=== PATIENT | male | born 1955 | race Caucasian/White ===

== ENCOUNTER 2019-08-13 21:06 | Inpatient (IN) ==
[2019-08-13] MEDS ORDERED: NITROGLYCERIN 2% OINT 1 INCH/GM PACK TOP STA (21:27)
[2019-08-13] MEDS ORDERED: ONDANSETRON 4 MG/2 ML VIAL IV STA (21:27)
[2019-08-13] MEDS ORDERED: HYDROmorphone 2 MG/1 ML VIAL IV STA ×2 (21:27→23:10)
[2019-08-13] MEDS ORDERED: ALUM/MAG/SIMETH/LIDO VISC 1:1 30 ML BOTTLE PO STA (21:27)
[2019-08-13] MEDS ORDERED: ASPIRIN 325 MG TABLET PO STA (21:27)
[2019-08-13 22:23] LABS: Basophils # 0.1 10*3/uL (0.0-0.2); Eosinophils # 0.3 10*3/uL (0.0-0.87); Eosinophils % 3.3 % (0.00-10.9); Hematocrit 44.9 VOL% (42.0-52.0); Hemoglobin 15.6 GM/DL (14.0-18.0); Immature Granulocytes % 0.4 %; Immature Granulocytes Absolute 0.04 #; Lymphocytes # 3.1 10*3/uL (1.4-4.0); Lymphocytes % 34.7 % (21.2-54.2); Mean Corpuscular HGB Conc 34.7 GM/DL (32-36); Mean Corpuscular Volume 88.9 FL (87-102); Mean Platelet Volume 10.3 FL (9.6-12.0); Monocytes % 8.6 % (1.7-12.7); Platelet Count 247 T/CUMM (130-400); Red Blood Count 5.05 MC/CUMM (3.8-5.5); Red Cell Distribution Width 13.1 % (9.3-17.3); White Blood Count 9.1 T/CUMM (4-12)
[2019-08-13 22:31] LABS: INR 0.9; PT Patient Result 9.5 SECS (9.6-12.2)
[2019-08-13 22:43] LABS: Alanine Aminotransferase 25 U/L (16-61); Albumin 4.3 G/DL (3.4-5.0); Alkaline Phosphatase 103 U/L (45-117); Aspartate Amino Transferase 16 U/L (0-37); Blood Urea Nitrogen 20 MG/DL (7-18); Glucose 102 MG/DL (74-106); Osmolality,Calculated 283.3 MOS/KG (273-304); Total Protein 8.6 G/DL (6.4-8.3)
[2019-08-13 22:45] LABS: Troponin I 0.135 NG/ML (0.00-0.045)
[2019-08-13] MEDS ORDERED: ENOXAPARIN 100 MG/ML SYRINGE SUBCUT STA (22:59)
[2019-08-13] MEDS ORDERED: ONDANSETRON 4 MG/2 ML VIAL IV PRN (23:29)
[2019-08-13] MEDS ORDERED: NITROGLYCERIN SL 0.4 MG TABLET SL PRN (23:34)
[2019-08-13] MEDS ORDERED: METOPROLOL TARTRATE 25 MG TABLET PO SCH (23:45)
[2019-08-13] MEDS ORDERED: HEPARIN DRIP 25,000 UNITS/500 ML PREMIX IV SCH (23:45)
[2019-08-14] MEDS: MORPHINE 4 MG/1 ML VIAL IV PRN ×2 (04:40→21:40)
[2019-08-14] MEDS ORDERED: hydrALAZINE 20 MG/1 ML VIAL IV PRN (04:54)
[2019-08-14 04:55] LABS: Basophils # 0.1 10*3/uL (0.0-0.2); Basophils % 0.8 % (0.0-0.8); Eosinophils # 0.3 10*3/uL (0.0-0.87); Eosinophils % 2.9 % (0.00-10.9); Hematocrit 44.7 VOL% (42.0-52.0); Hemoglobin 14.9 GM/DL (14.0-18.0); Immature Granulocytes % 0.4 %; Immature Granulocytes Absolute 0.04 #; Lymphocytes # 3.8 10*3/uL (1.4-4.0); Lymphocytes % 35.1 % (21.2-54.2); Mean Corpuscular HGB Conc 33.3 GM/DL (32-36); Mean Corpuscular Volume 91.2 FL (87-102); Mean Platelet Volume 10.3 FL (9.6-12.0); Neutrophils % 52.8 % (38.7-73.9); Platelet Count 227 T/CUMM (130-400); Red Cell Distribution Width 13.2 % (9.3-17.3); White Blood Count 10.9 T/CUMM (4-12)
[2019-08-14 05:33] LABS: Bilirubin,Total 1.5 MG/DL (0.2-1.0); Calcium 9.1 MG/DL (8.5-10.1); Osmolality,Calculated 282.4 MOS/KG (273-304); Risk Ratio 6.74; Thyroid Stimulating Hormone 1.15 uIU/ml (0.358-3.74); Total Protein 7.8 G/DL (6.4-8.3); VLDL CHOLESTEROL 56.2 MG/DL
[2019-08-14] MEDS ORDERED: SODIUM CHLORIDE 0.9% 1,000 ML IV SCH ×2 (08:00→13:30)
[2019-08-14] MEDS: NITROGLYCERIN 2% OINT 1 INCH/GM PACK TOP SCH ×3 (08:15→18:26)
[2019-08-14] MEDS: ATORVASTATIN 80 MG TABLET PO SCH ×2 (08:15→21:31)
[2019-08-14] MEDS: NICOTINE 21 MG/24 HR PATCH TRANSDERM SCH (08:15)
[2019-08-14] MEDS: ASPIRIN EC 81 MG TABLET PO SCH (08:16)
[2019-08-14] MEDS: PANTOPRAZOLE 40 MG TABLET PO SCH (08:16)
[2019-08-14] MEDS ORDERED: ASPIRIN CHEW 81 MG TABLET PO ONE (08:41)
[2019-08-14] MEDS ORDERED: MAGNESIUM SULF RIDER 2 GM in PREMIX 1 EACH IV PRN (08:41)
[2019-08-14] MEDS ORDERED: diphenhydrAMINE CAP 25 MG CAPSULE PO ONE (08:41)
[2019-08-14] MEDS ORDERED: POTASSIUM CHLORIDE RIDER 10 MEQ in PREMIX 1 EACH IV PRN (08:41)
[2019-08-14] MEDS ORDERED: DIAZEPAM 5 MG TABLET PO ONE (08:41)
[2019-08-14 08:43] LABS: CKMB % 14.6 %
[2019-08-14 08:50] LABS: Troponin I 3.14 NG/ML (0.00-0.045)
[2019-08-14] MEDS ORDERED: METOPROLOL TARTRATE 25 MG TABLET PO SCH (09:00)
[2019-08-14] MEDS ORDERED: LORazepam 2 MG/1 ML VIAL ONE (09:09)
[2019-08-14] MEDS: BISOPROLOL 5 MG TABLET PO SCH ×2 (09:13→21:31)
[2019-08-14] MEDS: LORazepam 2 MG/1 ML VIAL IV PRN (09:14)
[2019-08-14] MEDS: PARoxetine 20 MG TABLET PO SCH (09:14)
[2019-08-14] MEDS: ALBUTEROL/IPRATROPIUM 3 ML NEB RESP TX SCH ×5 (09:38→23:19)
[2019-08-14] MEDS ORDERED: ENOXAPARIN 100 MG/ML SYRINGE SUBCUT SCH (11:00)
[2019-08-14] MEDS ORDERED: LIDOCAINE 1% 20 ML VIAL ONE (11:03)
[2019-08-14] MEDS ORDERED: fentaNYL 100 MCG/2 ML VIAL ONE (11:16)
[2019-08-14] MEDS ORDERED: MIDAZOLAM 2 MG/2 ML VIAL ONE (11:16)
[2019-08-14] MEDS: LEVOTHYROXINE 200 MCG TABLET PO SCH (13:06)
[2019-08-14] MEDS ORDERED: DEXTROSE 50% 25 GM/50 ML VIAL IV PRN (13:29)
[2019-08-14] MEDS ORDERED: GLUCAGON 1 MG VIAL IM PRN (13:29)
[2019-08-14] MEDS ORDERED: CEFUROXIME INJ 1,500 MG in SYRINGE 1 EACH IV ONE (13:29)
[2019-08-14] MEDS: CHLORHEXIDINE 4% SOLN 118 ML BOTTLE TOP SCH ×2 (15:30→21:32)
[2019-08-14] MEDS: CHLORHEXIDINE 0.12% ORAL RINSE 60 ML BOTTLE SWISH/SPIT SCH ×2 (17:00→21:32)
[2019-08-14 18:37] LABS: ABG Base Excess -0.8 MMOL/L (-2.5-2.5); ABG Oxygen Saturation 96.3 % (95-100); ABG PCO2 35.7 MM HG (35-48); ABG PH 7.427 (7.35-7.45); ABG PO2 85.5 MM HG (80-95); ABG TCO2 24.1 MMOL/L (23-27); Pt O2 Delivery Device Room Air
[2019-08-15] MEDS: NITROGLYCERIN 2% OINT 1 INCH/GM PACK TOP SCH ×2 (00:56→05:40)
[2019-08-15] MEDS: LORazepam 2 MG/1 ML VIAL IV PRN (01:08)
[2019-08-15] MEDS: ALBUTEROL/IPRATROPIUM 3 ML NEB RESP TX SCH ×6 (03:41→23:30)
[2019-08-15] MEDS ORDERED: PAPAVERINE 60 MG/2 ML VIAL ONE (04:23)
[2019-08-15] MEDS ORDERED: VANCOMYCIN 1,000 MG VIAL ONE (04:23)
[2019-08-15 05:06] LABS: Basophils # 0.1 10*3/uL (0.0-0.2); Basophils % 0.5 % (0.0-0.8); Eosinophils # 0.1 10*3/uL (0.0-0.87); Eosinophils % 1.2 % (0.00-10.9); Hematocrit 40.4 VOL% (42.0-52.0); Hemoglobin 13.3 GM/DL (14.0-18.0); Immature Granulocytes % 0.4 %; Immature Granulocytes Absolute 0.05 #; Lymphocytes # 2.1 10*3/uL (1.4-4.0); Lymphocytes % 18.8 % (21.2-54.2); Mean Corpuscular HGB Conc 32.9 GM/DL (32-36); Mean Corpuscular Volume 92.4 FL (87-102); Mean Platelet Volume 10.4 FL (9.6-12.0); Monocytes % 7.2 % (1.7-12.7); Neutrophils % 71.9 % (38.7-73.9); Platelet Count 203 T/CUMM (130-400); Red Blood Count 4.37 MC/CUMM (3.8-5.5); Red Cell Distribution Width 13.2 % (9.3-17.3); White Blood Count 11.3 T/CUMM (4-12)
[2019-08-15] MEDS: CHLORHEXIDINE 4% SOLN 118 ML BOTTLE TOP SCH ×2 (05:34→08:31)
[2019-08-15 05:38] LABS: Albumin 3.9 G/DL (3.4-5.0); Bilirubin,Total 1.8 MG/DL (0.2-1.0); Calcium 8.9 MG/DL (8.5-10.1); Osmolality,Calculated 279.5 MOS/KG (273-304); Total Protein 7.6 G/DL (6.4-8.3)
[2019-08-15 05:43] LABS: Troponin I 12.3 NG/ML (0.00-0.045)
[2019-08-15] MEDS ORDERED: MIDAZOLAM 10 MG/2 ML VIAL ONE (05:57)
[2019-08-15] MEDS ORDERED: SUFentanil 250 MCG/5 ML AMP ONE (05:57)
[2019-08-15] MEDS ORDERED: DIAZEPAM 5 MG TABLET PO ONE (06:00)
[2019-08-15] MEDS ORDERED: FAMOTIDINE 20 MG TABLET PO ONE (06:00)
[2019-08-15] MEDS ORDERED: ALBUTEROL/IPRATROPIUM 3 ML NEB RESP TX ONE (06:00)
[2019-08-15 06:05] LABS: Apearance,Urine CLEAR (Clear); Bilirubin,Urine Negative (Negative); Blood, Urine Negative (Negative); Glucose,Urine (UA) Negative (Negative); Ketones,Urine Negative (Negative); Nitrite,Urine Negative (Negative); Protein,Urine Negative; RBC,Urine 3 /HPF (0-4); Squamous Epithelial Cell,Urine Occasional /HPF (0-10); Urine Color Straw (Yellow); Urine Specific Gravity 1.011 (1.001-1.035); Urine Urobilinogen < 2.0 EU/DL (0.2-1.0); WBC,Urine <1 /HPF (0-6)
[2019-08-15 06:11] LABS: Barbiturates Screen,Urine Negative (Negative); Benzodiazepines Screen,Urine Positive (Negative); Cannabinoid Screen,Urine Negative (Negative); Opiate Screen,Urine Positive (Negative); Phencyclidine Screen,Urine Negative (Negative)
[2019-08-15] MEDS ORDERED: PHENYLEPHRINE DRIP 40 MG/250 ML PREMIX IV ONE (07:25)
[2019-08-15] MEDS ORDERED: SODIUM BICARBONATE 50 MEQ/50 ML VIAL IV ONE ×2 (07:25→10:39)
[2019-08-15] MEDS ORDERED: NITROPRUSSIDE 50 MG/2 ML VIAL ONE (07:25)
[2019-08-15] MEDS ORDERED: POTASSIUM CHLORIDE RIDER 100 ML IV ONE (07:26)
[2019-08-15] MEDS ORDERED: CALCIUM CHLORIDE 1,000 MG/10 ML SYRINGE IV ONE (07:26)
[2019-08-15] MEDS ORDERED: ALBUMIN 5% 12.5 GM/250 ML VIAL IV ONE ×2 (07:27→15:37)
[2019-08-15 07:48] LABS: ABG Base Excess -1.8 MMOL/L (-2.5-2.5); ABG Oxygen Saturation 99.9 % (95-100); ABG PCO2 35.9 MM HG (35-48); ABG PH 7.404 (7.35-7.45); ABG TCO2 19.7 MMOL/L (23-27); Glucose Heart Surgery 130 MG/DL (74-106); Hematocrit Heart Surgery 38.6 PERCENT (42-52); Hemoglobin Heart Surgery 12.5 G/DL (14.0-18.0); Ionized Calcium Arterial 1.14 MMOL/L (1.21-1.46); PCO2 Patient Temp Arterial 35.9 MMHG; PH Patient Temp Arterial 7.404; Patient Temperature 37 CELCIUS; Potassium Heart/CVR 4.1 MMOL/L (3.5-5.1); Sodium Heart/CVR 137 MMOL/L (135-145)
[2019-08-15] MEDS: NICOTINE 21 MG/24 HR PATCH TRANSDERM SCH (08:31)
[2019-08-15] MEDS: ASPIRIN EC 81 MG TABLET PO SCH (08:31)
[2019-08-15] MEDS: PANTOPRAZOLE 40 MG TABLET PO SCH (08:32)
[2019-08-15] MEDS: PARoxetine 20 MG TABLET PO SCH (08:32)
[2019-08-15] MEDS: LEVOTHYROXINE 200 MCG TABLET PO SCH (08:32)
[2019-08-15] MEDS: CHLORHEXIDINE 0.12% ORAL RINSE 60 ML BOTTLE SWISH/SPIT SCH ×2 (08:32→20:29)
[2019-08-15] MEDS: BISOPROLOL 5 MG TABLET PO SCH (08:32)
[2019-08-15 08:35] LABS: Apearance,Urine CLEAR (Clear); Bilirubin,Urine Negative (Negative); Blood, Urine Small mg/dL (Negative); Glucose,Urine (UA) Negative (Negative); Ketones,Urine Negative (Negative); Nitrite,Urine Negative (Negative); Protein,Urine Negative; RBC,Urine 5 /HPF (0-4); Squamous Epithelial Cell,Urine Occasional /HPF (0-10); Urine Color Yellow (Yellow); Urine Urobilinogen < 2.0 EU/DL (0.2-1.0); WBC,Urine <1 /HPF (0-6)
[2019-08-15] MEDS ORDERED: CALCIUM CHLORIDE 1,000 MG/10 ML VIAL IV ONE (09:00)
[2019-08-15] MEDS ORDERED: AMINOCAPROIC ACID 5,000 MG/20 ML VIAL ONE (09:00)
[2019-08-15] MEDS ORDERED: HEPARIN/NACL 0.9% 2 UNITS/ML 500 ML IV ONE (09:00)
[2019-08-15] MEDS ORDERED: NITROGLYCERIN DRIP 50 MG/250 ML BOTTLE IV ONE (09:00)
[2019-08-15] MEDS ORDERED: PHENYLEPHRINE DRIP 20 MG/250 ML PREMIX IV ONE (09:00)
[2019-08-15 09:08] LABS: Hemoglobin Heart Surgery 8.4 G/DL (14.0-18.0); PCO2 Patient Temp Venous 31.8 MM HG; PH Patient Temp Venous 7.452; PO2 Patient Temp Venous 35.9 MM HG; Potassium Heart/CVR 5.4 MMOL/L (3.5-5.1); VBG HCO3 22.1 MEQ/L (24-28); VBG Oxygen Saturation 77.7 %; VBG PCO2 34.7 MMHG (41-51); VBG PH 7.422; VBG PO2 41.4 MMHG (17-40)
[2019-08-15 09:41] LABS: Hematocrit Heart Surgery 26.6 PERCENT (42-52); Hemoglobin Heart Surgery 8.6 G/DL (14.0-18.0); PCO2 Patient Temp Venous 34.9 MM HG; PH Patient Temp Venous 7.443; PO2 Patient Temp Venous 38.2 MM HG; Potassium Heart/CVR 5.8 MMOL/L (3.5-5.1); VBG Base Excess 0.1 MEQ/L (0-4); VBG HCO3 24.3 MEQ/L (24-28); VBG Oxygen Saturation 81.9 %; VBG PCO2 38.4 MMHG (41-51); VBG PH 7.414; VBG PO2 43.9 MMHG (17-40)
[2019-08-15] MEDS ORDERED: THROMBIN TOPICAL (RECOMBINANT) 5,000 UNIT VIAL TOP ONE (10:04)
[2019-08-15 10:32] LABS: ABG HCO3 21.1 MMOL/L (20-26); ABG Oxygen Saturation 98.9 % (95-100); ABG PCO2 34.1 MM HG (35-48); ABG PH 7.409 (7.35-7.45); ABG TCO2 22.1 MMOL/L (23-27); Glucose Heart Surgery 216 MG/DL (74-106); Hemoglobin Heart Surgery 10.2 G/DL (14.0-18.0); Ionized Calcium Arterial 1.15 MMOL/L (1.21-1.46); PCO2 Patient Temp Arterial 34.1 MMHG; PH Patient Temp Arterial 7.409; Patient Temperature 37 CELCIUS; Potassium Heart/CVR 4.1 MMOL/L (3.5-5.1); Sodium Heart/CVR 131 MMOL/L (135-145)
[2019-08-15] MEDS ORDERED: ALBUMIN 25% 25 GM/100 ML VIAL IV ONE (10:39)
[2019-08-15] MEDS ORDERED: LIDOCAINE 100 MG/5 ML SYRINGE ONE (10:39)
[2019-08-15] MEDS ORDERED: PROTAMINE SULFATE 250 MG/25 ML VIAL IV ONE (10:39)
[2019-08-15] MEDS ORDERED: MANNITOL 100 GM/500 ML BAG IV ONE (10:39)
[2019-08-15] MEDS ORDERED: MAGNESIUM SULFATE 5 GM/10 ML VIAL IV ONE (10:40)
[2019-08-15] MEDS ORDERED: methylPREDNISolone SOD SUC 1,000 MG/8 ML VIAL ONE (10:40)
[2019-08-15] MEDS ORDERED: HEPARIN 10,000 UNIT/10 ML VIAL ONE (10:40)
[2019-08-15] MEDS ORDERED: FUROSEMIDE 20 MG/2 ML VIAL ONE (10:40)
[2019-08-15] MEDS ORDERED: PROTAMINE SULFATE 50 MG/5 ML VIAL IV ONE (10:40)
[2019-08-15] MEDS ORDERED: DEXTROSE 5% KCL 20 MEQ 20 MEQ/1,000 ML BAG IV ONE (10:41)
[2019-08-15] MEDS ORDERED: NITROPRUSSIDE 100 MG in DEXTROSE 5% 250 ML IV PRN (11:28)
[2019-08-15] MEDS ORDERED: INSULIN REGULAR DRIP 100 ML IV PRN (11:29)
[2019-08-15] MEDS ORDERED: SODIUM CHLORIDE 0.45% 1,000 ML IV SCH ×2 (11:30)
[2019-08-15] MEDS ORDERED: SEVOFLURANE 1 UNIT/15 MINUTE INH ONE (11:38)
[2019-08-15] MEDS ORDERED: SODIUM CHLORIDE 0.9% 1,000 ML IV ONE (11:38)
[2019-08-15] MEDS ORDERED: ETOMIDATE 40 MG/20 ML VIAL IV ONE (11:38)
[2019-08-15] MEDS ORDERED: SUCCINYLCHOLINE 200 MG/10 ML VIAL ONE (11:38)
[2019-08-15] MEDS ORDERED: LACTATED RINGERS 1,000 ML IV ONE (11:38)
[2019-08-15] MEDS ORDERED: VECURONIUM 10 MG VIAL IV ONE (11:38)
[2019-08-15] MEDS ORDERED: LIDOCAINE 1% 5 ML VIAL ONE (11:38)
[2019-08-15] MEDS ORDERED: SODIUM CHLORIDE 0.9% 250 ML IV ONE (11:38)
[2019-08-15] MEDS ORDERED: ePHEDrine 50 MG/ML AMP ONE (11:38)
[2019-08-15] MEDS ORDERED: SODIUM CHLORIDE 0.9% 100 ML IV ONE (11:38)
[2019-08-15] MEDS ORDERED: PHENYLEPHRINE 1 MG/10 ML SYRINGE IV ONE (11:39)
[2019-08-15] MEDS ORDERED: MAGNESIUM SULF RIDER 2 GM in PREMIX 1 EACH IV PRN (11:40)
[2019-08-15] MEDS ORDERED: VECURONIUM 10 MG VIAL IV PRN ×2 (11:40)
[2019-08-15] MEDS ORDERED: MAGNESIUM SULF RIDER 4 GM in PREMIX 1 EACH IV PRN (11:40)
[2019-08-15] MEDS ORDERED: DEXTROSE 50% 25 GM/50 ML VIAL IV PRN ×2 (11:40)
[2019-08-15] MEDS ORDERED: INSULIN REGULAR 100 UNIT/ML IV ONE (11:40)
[2019-08-15] MEDS ORDERED: MIDAZOLAM 2 MG/2 ML VIAL IV PRN (11:40)
[2019-08-15] MEDS ORDERED: CALCIUM CHLORIDE 1,000 MG/10 ML SYRINGE IV PRN (11:40)
[2019-08-15] MEDS ORDERED: MORPHINE 10 MG/1 ML VIAL IV PRN (11:40)
[2019-08-15] MEDS ORDERED: ACETAMINOPHEN 650 MG SUPP RECTAL PRN (11:40)
[2019-08-15] MEDS ORDERED: MIDAZOLAM 10 MG/2 ML VIAL IV PRN (11:40)
[2019-08-15] MEDS ORDERED: ONDANSETRON 4 MG/2 ML VIAL IV PRN (11:40)
[2019-08-15] MEDS ORDERED: CHLORHEXIDINE 4% SOLN 118 ML BOTTLE TOP PRN (11:40)
[2019-08-15] MEDS ORDERED: POTASSIUM CHLORIDE RIDER 10 MEQ in PREMIX 1 EACH IV PRN (11:40)
[2019-08-15 11:47] LABS: ABG Base Excess -4.5 MMOL/L (-2.5-2.5); ABG HCO3 21.4 MMOL/L (20-26); ABG PCO2 42.5 MM HG (35-48); ABG PO2 268.9 MM HG (80-95); ABG TCO2 22.7 MMOL/L (23-27); Glucose Heart Surgery 197 MG/DL (74-106); Hemoglobin Heart Surgery 11.5 G/DL (14.0-18.0); Potassium Heart/CVR 3.2 MMOL/L (3.5-5.1)
[2019-08-15 11:59] LABS: Partial Thromboplastin Time 26.4 SECS (20.8-36.0)
[2019-08-15] MEDS: ALBUMIN 5% 25 GM in PREMIX 1 EACH IV PRN ×4 (12:00→16:56)
[2019-08-15] MEDS: LACTATED RINGERS 1,000 ML IV PRN ×2 (12:00→13:11)
[2019-08-15] MEDS ORDERED: INSULIN REGULAR DRIP 100 ML IV SCH (12:00)
[2019-08-15 12:01] LABS: Basophils % 0.3 % (0.0-0.8); Eosinophils # 0.1 10*3/uL (0.0-0.87); Eosinophils % 0.4 % (0.00-10.9); Hematocrit 32.5 VOL% (42.0-52.0); Hemoglobin 10.9 GM/DL (14.0-18.0); Immature Granulocytes % 0.8 %; Immature Granulocytes Absolute 0.12 #; Lymphocytes # 2.3 10*3/uL (1.4-4.0); Lymphocytes % 14.9 % (21.2-54.2); Mean Corpuscular HGB Conc 33.5 GM/DL (32-36); Mean Corpuscular Volume 92.1 FL (87-102); Mean Platelet Volume 10.5 FL (9.6-12.0); Monocytes % 5.5 % (1.7-12.7); Neutrophils % 78.1 % (38.7-73.9); Platelet Count 168 T/CUMM (130-400); Red Blood Count 3.53 MC/CUMM (3.8-5.5); Red Cell Distribution Width 13.4 % (9.3-17.3); White Blood Count 15.6 T/CUMM (4-12)
[2019-08-15] MEDS: KETOROLAC 30 MG/1 ML VIAL IV SCH ×3 (12:13→23:37)
[2019-08-15] MEDS: POTASSIUM CHLORIDE RIDER 20 MEQ in PREMIX 1 EACH IV PRN ×3 (12:15→14:00)
[2019-08-15 12:22] LABS: CKMB % 6.7 %
[2019-08-15 12:24] LABS: Troponin I 15.5 NG/ML (0.00-0.045)
[2019-08-15 12:30] LABS: Albumin 3.4 G/DL (3.4-5.0); Bilirubin,Total 1.4 MG/DL (0.2-1.0); Calcium 8.3 MG/DL (8.5-10.1); Osmolality,Calculated 283.5 MOS/KG (273-304); Total Protein 6.3 G/DL (6.4-8.3)
[2019-08-15] MEDS: PHENYLEPHRINE DRIP 40 MG/250 ML PREMIX IV PRN (12:30)
[2019-08-15] MEDS ORDERED: AMIODARONE 150 MG/3 ML VIAL ONE ×2 (12:39→12:42)
[2019-08-15] MEDS ORDERED: AMIODARONE 450 MG/9 ML VIAL IV ONE (12:41)
[2019-08-15] MEDS ORDERED: AMIODARONE INJ 150 MG in DEXTROSE 5% 100 ML IV ONE (12:58)
[2019-08-15 12:59] LABS: ABG Base Excess -6.9 MMOL/L (-2.5-2.5); ABG HCO3 18.8 MMOL/L (20-26); ABG Oxygen Saturation 95.5 % (95-100); ABG PCO2 54.9 MM HG (35-48); ABG PO2 90.9 MM HG (80-95); ABG TCO2 20.1 MMOL/L (23-27); Glucose Heart Surgery 217 MG/DL (74-106); Hematocrit Heart Surgery 32.1 PERCENT (42-52); Hemoglobin Heart Surgery 10.4 G/DL (14.0-18.0); Potassium Heart/CVR 4.2 MMOL/L (3.5-5.1)
[2019-08-15] MEDS ORDERED: AMIODARONE INJ 450 MG in DEXTROSE 5% 241 ML IV SCH (13:00)
[2019-08-15] MEDS ORDERED: SODIUM BICARBONATE 50 MEQ/50 ML VIAL IV PRN (13:00)
[2019-08-15 13:01] LABS: ABG PH 7.203 (7.35-7.45)
[2019-08-15 13:40] LABS: ABG Base Excess -4.9 MMOL/L (-2.5-2.5); ABG HCO3 20.4 MMOL/L (20-26); ABG Oxygen Saturation 97.7 % (95-100); ABG PH 7.266 (7.35-7.45); ABG TCO2 20.5 MMOL/L (23-27); Glucose Heart Surgery 204 MG/DL (74-106); Hematocrit Heart Surgery 32.7 PERCENT (42-52); Hemoglobin Heart Surgery 10.6 G/DL (14.0-18.0)
[2019-08-15] MEDS: INSULIN REGULAR 100 UNIT/ML IV PRN ×3 (14:00→18:26)
[2019-08-15 14:42] LABS: ABG Base Excess -3.3 MMOL/L (-2.5-2.5); ABG HCO3 21.7 MMOL/L (20-26); ABG PCO2 40.7 MM HG (35-48); ABG PH 7.344 (7.35-7.45); ABG TCO2 20.3 MMOL/L (23-27); Glucose Heart Surgery 186 MG/DL (74-106); Potassium Heart/CVR 4.1 MMOL/L (3.5-5.1)
[2019-08-15 16:03] LABS: ABG Base Excess -3.1 MMOL/L (-2.5-2.5); ABG HCO3 21.8 MMOL/L (20-26); ABG PCO2 37.1 MM HG (35-48); ABG PH 7.374 (7.35-7.45); ABG TCO2 19.7 MMOL/L (23-27); Glucose Heart Surgery 186 MG/DL (74-106); Hematocrit Heart Surgery 31.7 PERCENT (42-52); Hemoglobin Heart Surgery 10.3 G/DL (14.0-18.0); Potassium Heart/CVR 3.9 MMOL/L (3.5-5.1)
[2019-08-15 18:03] LABS: ABG Base Excess -3.8 MMOL/L (-2.5-2.5); ABG HCO3 21.3 MMOL/L (20-26); ABG Oxygen Saturation 99.4 % (95-100); ABG PCO2 35.4 MM HG (35-48); ABG PH 7.378 (7.35-7.45); Glucose Heart Surgery 179 MG/DL (74-106)
[2019-08-15 18:42] LABS: ABG Base Excess -5.1 MMOL/L (-2.5-2.5); ABG HCO3 21.5 MMOL/L (20-26); ABG Oxygen Saturation 96.9 % (95-100); ABG PCO2 46.1 MM HG (35-48); ABG PH 7.286 (7.35-7.45); ABG TCO2 22.9 MMOL/L (23-27); Glucose Heart Surgery 160 MG/DL (74-106); Hemoglobin Heart Surgery 10.7 G/DL (14.0-18.0); Potassium Heart/CVR 3.9 MMOL/L (3.5-5.1)
[2019-08-15] MEDS: AMIODARONE INJ 450 MG in DEXTROSE 5% 241 ML IV SCH (19:10)
[2019-08-15] MEDS: CEFUROXIME INJ 1,500 MG in SYRINGE 1 EACH IV SCH (20:27)
[2019-08-15 20:43] LABS: Troponin I 11.5 NG/ML (0.00-0.045)
[2019-08-15 22:19] LABS: ABG Base Excess -2.7 MMOL/L (-2.5-2.5); ABG HCO3 22.1 MMOL/L (20-26); ABG Oxygen Saturation 98.1 % (95-100); ABG PCO2 46.7 MM HG (35-48); ABG PH 7.313 (7.35-7.45); ABG TCO2 21.7 MMOL/L (23-27); Glucose Heart Surgery 133 MG/DL (74-106); Potassium Heart/CVR 3.9 MMOL/L (3.5-5.1)
[2019-08-15] MEDS ORDERED: FUROSEMIDE 40 MG/4 ML VIAL IV ONE (22:20)
[2019-08-16] MEDS: MORPHINE 4 MG/1 ML VIAL IV PRN ×2 (00:13→20:45)
[2019-08-16 00:39] LABS: ABG Base Excess -1.9 MMOL/L (-2.5-2.5); ABG HCO3 23.4 MMOL/L (20-26); ABG Oxygen Saturation 96.4 % (95-100); ABG PH 7.364 (7.35-7.45); ABG PO2 91.3 MM HG (80-95); ABG TCO2 24.7 MMOL/L (23-27); Glucose Heart Surgery 101 MG/DL (74-106); Hemoglobin Heart Surgery 10.5 G/DL (14.0-18.0); Potassium Heart/CVR 3.7 MMOL/L (3.5-5.1)
[2019-08-16] MEDS: POTASSIUM CHLORIDE RIDER 20 MEQ in PREMIX 1 EACH IV PRN (01:00)
[2019-08-16] MEDS: ALBUMIN 5% 25 GM in PREMIX 1 EACH IV PRN (01:02)
[2019-08-16] MEDS: PHENYLEPHRINE DRIP 40 MG/250 ML PREMIX IV PRN (02:26)
[2019-08-16] MEDS: ALBUTEROL/IPRATROPIUM 3 ML NEB RESP TX SCH ×6 (03:40→23:46)
[2019-08-16 04:06] LABS: ABG Base Excess -1.7 MMOL/L (-2.5-2.5); ABG Oxygen Saturation 95.8 % (95-100); ABG PCO2 41.5 MM HG (35-48); ABG PH 7.364 (7.35-7.45); ABG PO2 75.6 MM HG (80-95); ABG TCO2 21.6 MMOL/L (23-27); Glucose Heart Surgery 157 MG/DL (74-106); Hematocrit Heart Surgery 30.1 PERCENT (42-52); Hemoglobin Heart Surgery 9.7 G/DL (14.0-18.0); Potassium Heart/CVR 4.9 MMOL/L (3.5-5.1)
[2019-08-16 04:21] LABS: Basophils # 0.1 10*3/uL (0.0-0.2); Basophils % 0.2 % (0.0-0.8); Hematocrit 28.2 VOL% (42.0-52.0); Hemoglobin 9.5 GM/DL (14.0-18.0); Immature Granulocytes % 0.8 %; Immature Granulocytes Absolute 0.19 #; Lymphocytes % 4.1 % (21.2-54.2); Mean Corpuscular HGB Conc 33.7 GM/DL (32-36); Mean Corpuscular Volume 92.2 FL (87-102); Mean Platelet Volume 10.6 FL (9.6-12.0); Monocytes % 4.2 % (1.7-12.7); Neutrophils % 90.7 % (38.7-73.9); Platelet Count 157 T/CUMM (130-400); Red Blood Count 3.06 MC/CUMM (3.8-5.5); Red Cell Distribution Width 13.8 % (9.3-17.3); White Blood Count 24.1 T/CUMM (4-12)
[2019-08-16 04:34] LABS: Albumin 3.9 G/DL (3.4-5.0); Bilirubin,Direct 0.27 MG/DL (0.0-0.20); Calcium 8.2 MG/DL (8.5-10.1); Osmolality,Calculated 285.3 MOS/KG (273-304); Total Protein 6.5 G/DL (6.4-8.3)
[2019-08-16 04:46] LABS: Band Neutrophils 4 % (0-10); Hypochromasia 1+; Lymphocytes 5 % (20-55); Platelet Estimate Adequate; Segmented Neutrophils 86 % (50-85); Total Cells Counted 100
[2019-08-16 05:01] LABS: Troponin I 11.1 NG/ML (0.00-0.045)
[2019-08-16] MEDS: INSULIN REGULAR 100 UNIT/ML SUBCUT SCH ×5 (06:37→21:04)
[2019-08-16] MEDS: KETOROLAC 30 MG/1 ML VIAL IV SCH ×3 (06:53→17:34)
[2019-08-16] MEDS: CEFUROXIME INJ 1,500 MG in SYRINGE 1 EACH IV SCH ×2 (07:30→20:30)
[2019-08-16] MEDS ORDERED: ASPIRIN 325 MG TABLET PO STA (08:37)
[2019-08-16] MEDS ORDERED: ASPIRIN CHEW 81 MG TABLET PO ONE (08:37)
[2019-08-16] MEDS ORDERED: DEXTROSE 50% 25 GM/50 ML VIAL IV PRN (08:38)
[2019-08-16] MEDS ORDERED: GLUCAGON 1 MG VIAL IM PRN (08:38)
[2019-08-16] MEDS ORDERED: KETOROLAC 30 MG/1 ML VIAL IV SCH (09:00)
[2019-08-16] MEDS ORDERED: METOPROLOL TARTRATE 25 MG TABLET PO SCH (09:00)
[2019-08-16] MEDS: BISOPROLOL 5 MG TABLET PO SCH (09:09)
[2019-08-16] MEDS: CHLORHEXIDINE 0.12% ORAL RINSE 60 ML BOTTLE SWISH/SPIT SCH ×2 (09:12→21:05)
[2019-08-16] MEDS: NICOTINE 21 MG/24 HR PATCH TRANSDERM SCH (09:16)
[2019-08-16] MEDS: PARoxetine 20 MG TABLET PO SCH (09:16)
[2019-08-16] MEDS: LEVOTHYROXINE 200 MCG TABLET PO SCH (09:16)
[2019-08-16] MEDS ORDERED: oxyCODONE/ACETAMINOPHEN 5-325 MG TABLET PO PRN (10:11)
[2019-08-16] MEDS: AMIODARONE INJ 450 MG in DEXTROSE 5% 241 ML IV SCH (10:46)
[2019-08-16 14:52] LABS: CKMB % 2.5 %
[2019-08-16 14:53] LABS: Troponin I 7.14 NG/ML (0.00-0.045)
[2019-08-16] MEDS ORDERED: ATORVASTATIN 80 MG TABLET PO SCH (21:00)
[2019-08-16] MEDS: AMIODARONE 200 MG TABLET PO SCH (21:04)
[2019-08-17] MEDS: KETOROLAC 30 MG/1 ML VIAL IV SCH ×5 (00:13→23:30)
[2019-08-17] MEDS: INSULIN REGULAR 100 UNIT/ML SUBCUT SCH ×3 (00:13→07:36)
[2019-08-17 04:02] LABS: Basophils % 0.2 % (0.0-0.8); Hematocrit 29.1 VOL% (42.0-52.0); Hemoglobin 9.7 GM/DL (14.0-18.0); Immature Granulocytes % 0.9 %; Immature Granulocytes Absolute 0.17 #; Lymphocytes # 1.4 10*3/uL (1.4-4.0); Lymphocytes % 7.8 % (21.2-54.2); Mean Corpuscular HGB Conc 33.3 GM/DL (32-36); Mean Corpuscular Volume 91.8 FL (87-102); Mean Platelet Volume 10.9 FL (9.6-12.0); Monocytes % 5.7 % (1.7-12.7); Neutrophils % 85.4 % (38.7-73.9); Platelet Count 133 T/CUMM (130-400); Red Blood Count 3.17 MC/CUMM (3.8-5.5); Red Cell Distribution Width 14.8 % (9.3-17.3); White Blood Count 18.1 T/CUMM (4-12)
[2019-08-17] MEDS: ALBUTEROL/IPRATROPIUM 3 ML NEB RESP TX SCH ×5 (04:28→19:25)
[2019-08-17 04:56] LABS: Albumin 3.3 G/DL (3.4-5.0); Bilirubin,Direct 0.18 MG/DL (0.0-0.20); Bilirubin,Total 0.8 MG/DL (0.2-1.0); Calcium 8.1 MG/DL (8.5-10.1); Osmolality,Calculated 288.3 MOS/KG (273-304); Total Protein 5.8 G/DL (6.4-8.3)
[2019-08-17] MEDS ORDERED: ASPIRIN EC 325 MG TABLET PO SCH (09:00)
[2019-08-17] MEDS ORDERED: ASPIRIN 325 MG TABLET PO STA (09:11)
[2019-08-17] MEDS ORDERED: ASPIRIN CHEW 81 MG TABLET PO ONE (09:11)
[2019-08-17] MEDS ORDERED: KETOROLAC 30 MG/1 ML VIAL IV SCH (09:30)
[2019-08-17] MEDS: AMIODARONE 200 MG TABLET PO SCH ×2 (09:50→21:10)
[2019-08-17] MEDS: PARoxetine 20 MG TABLET PO SCH (09:50)
[2019-08-17] MEDS: LEVOTHYROXINE 200 MCG TABLET PO SCH (09:50)
[2019-08-17] MEDS: NICOTINE 21 MG/24 HR PATCH TRANSDERM SCH (09:51)
[2019-08-17] MEDS: CHLORHEXIDINE 0.12% ORAL RINSE 60 ML BOTTLE SWISH/SPIT SCH ×2 (09:52→21:10)
[2019-08-17] MEDS ORDERED: MORPHINE 4 MG/1 ML VIAL IV PRN (11:43)
[2019-08-17] MEDS ORDERED: DEXTROSE 50% 25 GM/50 ML VIAL IV PRN ×2 (11:43)
[2019-08-17] MEDS ORDERED: POTASSIUM CHLORIDE 20 MEQ TABLET PO PRN (11:43)
[2019-08-17] MEDS ORDERED: MAGNESIUM SULF RIDER 4 GM in PREMIX 1 EACH IV PRN (11:43)
[2019-08-17] MEDS ORDERED: MAGNESIUM SULF RIDER 2 GM in PREMIX 1 EACH IV PRN (11:43)
[2019-08-17] MEDS ORDERED: ONDANSETRON 4 MG/2 ML VIAL IV PRN (11:43)
[2019-08-17] MEDS ORDERED: SODIUM CHLOR 0.45% KCL 20 MEQ 20 MEQ/1,000 ML BAG IV SCH (11:43)
[2019-08-17] MEDS ORDERED: MAGNESIUM HYDROXIDE SUSP 30 ML UDCUP PO PRN (11:43)
[2019-08-17] MEDS ORDERED: ACETAMINOPHEN 325 MG TABLET PO PRN (11:43)
[2019-08-17] MEDS ORDERED: ALUMINUM/MAGNES/SIMETH MAX STR 30 ML UDCUP PO PRN (11:43)
[2019-08-17] MEDS ORDERED: GLUCAGON 1 MG VIAL IM PRN ×2 (11:43)
[2019-08-17] MEDS: oxyCODONE/ACETAMINOPHEN 5-325 MG TABLET PO PRN ×2 (15:04→21:25)
[2019-08-17] MEDS ORDERED: ATORVASTATIN 80 MG TABLET PO SCH (21:00)
[2019-08-17] MEDS ORDERED: BISOPROLOL 5 MG TABLET PO SCH (21:00)
[2019-08-17] MEDS ORDERED: METOPROLOL TARTRATE 25 MG TABLET PO SCH (21:00)
[2019-08-17] MEDS: BISOPROLOL 5 MG TABLET PO SCH (21:10)
[2019-08-17] MEDS: ROSUVASTATIN 10 MG TABLET PO SCH (21:10)
[2019-08-17] MEDS: ZALEPLON 5 MG CAPSULE PO PRN (21:10)
[2019-08-18] MEDS: ALBUTEROL/IPRATROPIUM 3 ML NEB RESP TX SCH ×7 (00:40→23:23)
[2019-08-18 05:02] LABS: Basophils % 0.2 % (0.0-0.8); Hemoglobin 9.4 GM/DL (14.0-18.0); Immature Granulocytes % 0.9 %; Lymphocytes # 1.9 10*3/uL (1.4-4.0); Lymphocytes % 16.3 % (21.2-54.2); Mean Corpuscular HGB Conc 32.4 GM/DL (32-36); Mean Corpuscular Volume 92.1 FL (87-102); Mean Platelet Volume 11.2 FL (9.6-12.0); Monocytes % 7.1 % (1.7-12.7); Neutrophils % 75.5 % (38.7-73.9); Platelet Count 146 T/CUMM (130-400); Red Blood Count 3.15 MC/CUMM (3.8-5.5); Red Cell Distribution Width 14.8 % (9.3-17.3); White Blood Count 11.7 T/CUMM (4-12)
[2019-08-18 05:25] LABS: Albumin 3.1 G/DL (3.4-5.0); Bilirubin,Direct 0.14 MG/DL (0.0-0.20); Bilirubin,Indirect 1.3 MG/DL (0.0-1.0); Bilirubin,Total 1.4 MG/DL (0.2-1.0); CKMB % 1.2 %; Calcium 8.1 MG/DL (8.5-10.1); Osmolality,Calculated 290.1 MOS/KG (273-304); Total Protein 5.7 G/DL (6.4-8.3)
[2019-08-18 05:29] LABS: Troponin I 5.26 NG/ML (0.00-0.045)
[2019-08-18] MEDS: KETOROLAC 30 MG/1 ML VIAL IV SCH ×3 (05:40→17:02)
[2019-08-18] MEDS ORDERED: FUROSEMIDE 40 MG/4 ML VIAL IV ONE (06:00)
[2019-08-18] MEDS: CHLORHEXIDINE 0.12% ORAL RINSE 60 ML BOTTLE SWISH/SPIT SCH ×2 (08:36→21:15)
[2019-08-18] MEDS: NICOTINE 21 MG/24 HR PATCH TRANSDERM SCH (08:37)
[2019-08-18] MEDS: BISOPROLOL 5 MG TABLET PO SCH ×2 (08:38→21:15)
[2019-08-18] MEDS: PARoxetine 20 MG TABLET PO SCH (08:38)
[2019-08-18] MEDS: PANTOPRAZOLE 40 MG TABLET PO SCH (08:38)
[2019-08-18] MEDS: AMIODARONE 200 MG TABLET PO SCH ×2 (08:38→21:15)
[2019-08-18] MEDS: DOCUSATE SODIUM 100 MG CAPSULE PO SCH (08:38)
[2019-08-18] MEDS: FERROUS SULFATE 325 MG TABLET PO SCH (08:38)
[2019-08-18] MEDS ORDERED: LEVOTHYROXINE 200 MCG TABLET PO SCH (09:00)
[2019-08-18] MEDS ORDERED: MELOXICAM 7.5 MG TABLET PO SCH (09:00)
[2019-08-18] MEDS ORDERED: NICOTINE 21 MG/24 HR PATCH TRANSDERM SCH (09:00)
[2019-08-18] MEDS ORDERED: PARoxetine 20 MG TABLET PO SCH (09:00)
[2019-08-18] MEDS ORDERED: ASPIRIN CHEW 81 MG TABLET PO ONE (11:04)
[2019-08-18] MEDS: ZALEPLON 5 MG CAPSULE PO PRN (21:15)
[2019-08-18] MEDS: ROSUVASTATIN 10 MG TABLET PO SCH (21:15)
[2019-08-18] MEDS: DIAZEPAM 5 MG TABLET PO PRN (21:15)
[2019-08-18] MEDS: METOPROLOL TARTRATE 25 MG TABLET PO SCH (21:15)
[2019-08-19] MEDS: oxyCODONE/ACETAMINOPHEN 5-325 MG TABLET PO PRN (01:05)
[2019-08-19] MEDS: KETOROLAC 30 MG/1 ML VIAL IV SCH ×4 (01:05→17:02)
[2019-08-19] MEDS: DIAZEPAM 5 MG TABLET PO PRN ×3 (01:50→21:00)
[2019-08-19] MEDS: ALBUTEROL/IPRATROPIUM 3 ML NEB RESP TX SCH ×5 (02:22→19:35)
[2019-08-19] MEDS: LEVOTHYROXINE 200 MCG TABLET PO SCH (05:44)
[2019-08-19 05:58] LABS: Basophils % 0.3 % (0.0-0.8); Eosinophils # 0.1 10*3/uL (0.0-0.87); Eosinophils % 1.2 % (0.00-10.9); Hematocrit 30.2 VOL% (42.0-52.0); Hemoglobin 9.9 GM/DL (14.0-18.0); Immature Granulocytes % 0.4 %; Immature Granulocytes Absolute 0.04 #; Lymphocytes # 2.5 10*3/uL (1.4-4.0); Lymphocytes % 25.7 % (21.2-54.2); Mean Corpuscular HGB Conc 32.8 GM/DL (32-36); Mean Corpuscular Volume 92.1 FL (87-102); Mean Platelet Volume 10.3 FL (9.6-12.0); Neutrophils % 64.4 % (38.7-73.9); Platelet Count 170 T/CUMM (130-400); Red Blood Count 3.28 MC/CUMM (3.8-5.5); Red Cell Distribution Width 14.4 % (9.3-17.3); White Blood Count 9.7 T/CUMM (4-12)
[2019-08-19 06:19] LABS: Alanine Aminotransferase 34 U/L (16-61); Albumin 3.2 G/DL (3.4-5.0); Alkaline Phosphatase 61 U/L (45-117); Aspartate Amino Transferase 29 U/L (0-37); Bilirubin,Indirect 0.6 MG/DL (0.0-1.0); Blood Urea Nitrogen 31 MG/DL (7-18); Calcium 8.2 MG/DL (8.5-10.1); Glucose 92 MG/DL (74-106); Osmolality,Calculated 292.8 MOS/KG (273-304); Total Protein 6.2 G/DL (6.4-8.3)
[2019-08-19] MEDS: BISOPROLOL 5 MG TABLET PO SCH ×2 (08:49→21:00)
[2019-08-19] MEDS: NICOTINE 21 MG/24 HR PATCH TRANSDERM SCH (08:49)
[2019-08-19] MEDS: DOCUSATE SODIUM 100 MG CAPSULE PO SCH (08:49)
[2019-08-19] MEDS: AMIODARONE 200 MG TABLET PO SCH ×2 (08:49→21:00)
[2019-08-19] MEDS: CHLORHEXIDINE 0.12% ORAL RINSE 60 ML BOTTLE SWISH/SPIT SCH ×2 (08:50→21:00)
[2019-08-19] MEDS: PARoxetine 20 MG TABLET PO SCH (08:50)
[2019-08-19] MEDS: FERROUS SULFATE 325 MG TABLET PO SCH (08:50)
[2019-08-19] MEDS: METOPROLOL TARTRATE 25 MG TABLET PO SCH ×2 (08:50→21:00)
[2019-08-19] MEDS: PANTOPRAZOLE 40 MG TABLET PO SCH (08:50)
[2019-08-19] MEDS: ZALEPLON 5 MG CAPSULE PO PRN (21:00)
[2019-08-19] MEDS: ROSUVASTATIN 10 MG TABLET PO SCH (21:00)
[2019-08-20] MEDS: KETOROLAC 30 MG/1 ML VIAL IV SCH ×2 (00:10→05:50)
[2019-08-20] MEDS: ALBUTEROL/IPRATROPIUM 3 ML NEB RESP TX SCH ×3 (00:32→07:31)
[2019-08-20] MEDS: LEVOTHYROXINE 200 MCG TABLET PO SCH (05:50)
[2019-08-20] MEDS: DOCUSATE SODIUM 100 MG CAPSULE PO SCH (10:12)
[2019-08-20] MEDS: FERROUS SULFATE 325 MG TABLET PO SCH (10:13)
[2019-08-20] MEDS: NICOTINE 21 MG/24 HR PATCH TRANSDERM SCH (10:13)
[2019-08-20] MEDS: PANTOPRAZOLE 40 MG TABLET PO SCH (10:14)
[2019-08-20] MEDS: PARoxetine 20 MG TABLET PO SCH (10:14)
[2019-08-20] MEDS: BISOPROLOL 5 MG TABLET PO SCH (10:15)
[2019-08-20] MEDS: METOPROLOL TARTRATE 25 MG TABLET PO SCH (10:20)
[2019-08-20] MEDS: AMIODARONE 200 MG TABLET PO SCH (10:20)
[2019-08-20] MEDS: CHLORHEXIDINE 0.12% ORAL RINSE 60 ML BOTTLE SWISH/SPIT SCH (10:20)
[2019-08-20 11:41] VITALS: BP 138/63
[2019-08-21] MEDS ORDERED: MELOXICAM 7.5 MG TABLET PO SCH (12:00)
== END 2019-08-20 12:03 | disposition home or self-care (01) | DRG 234 ==
LOC: N.ED 21:06 → N.EDINP 23:37 → SUATTDRO 23:37 → N.ICU 08-14 00:02 → N.CVR 08-15 07:00 → N.ICU 08-16 08:56 → N.TELES 08-17 11:46
PROVIDERS: ADMIT Internal Medicine; ATTEND Internal Medicine
PROC: CLCCHCL (ICD-10-PCS; 2019-08-14 10:15)

== ENCOUNTER 2022-02-16 18:16 | Inpatient (IN) ==
[2022-02-16] MEDS ORDERED: ONDANSETRON 4 MG/2 ML VIAL IV STA (18:56)
[2022-02-16] MEDS ORDERED: INSULIN REGULAR 100 UNIT/ML IV STA ×2 (18:56→19:38)
[2022-02-16] MEDS ORDERED: SODIUM CHLORIDE 0.9% 1,000 ML IV STA ×2 (18:56→21:10)
[2022-02-16 19:19] LABS: Basophils # 0.1 10*3/uL (0.0-0.2); Basophils % 0.8 % (0.0-0.8); Eosinophils # 0.2 10*3/uL (0.0-0.87); Eosinophils % 2.7 % (0.00-10.9); Hematocrit 40.7 VOL% (42.0-52.0); Hemoglobin 14.2 GM/DL (14.0-18.0); Immature Granulocytes % 0.6 %; Immature Granulocytes Absolute 0.04 #; Lymphocytes # 1.6 10*3/uL (1.4-4.0); Lymphocytes % 25.8 % (21.2-54.2); Mean Corpuscular HGB Conc 34.9 GM/DL (32-36); Mean Corpuscular Volume 87.9 FL (87-102); Monocytes % 7.8 % (1.7-12.7); Neutrophils % 62.3 % (38.7-73.9); Platelet Count 241 T/CUMM (130-400); Red Blood Count 4.63 MC/CUMM (3.8-5.5); Red Cell Distribution Width 12.3 % (9.3-17.3); White Blood Count 6.3 T/CUMM (4-12)
[2022-02-16 19:30] LABS: Albumin 3.7 G/DL (3.4-5.0); Bilirubin,Total 0.6 MG/DL (0.20-1.00); Calcium 9.3 MG/DL (8.5-10.1); Osmolality,Calculated 289.9 MOS/KG (273-304); Potassium 4.6 MMOL/L (3.5-5.1); Total Protein 7.8 G/DL (6.4-8.2)
[2022-02-16 20:32] LABS: Bilirubin,Urine Negative (Negative); Blood, Urine Trace mg/dL (Negative); Glucose,Urine (UA) >=1000 mg/dL (Negative); Ketones,Urine Trace mg/dL (Negative); Mucus,Urine Occasional /LPF (Occasional); Nitrite,Urine Negative (Negative); Protein,Urine Negative (Negative); RBC,Urine <1 /HPF (0-4); Urine Appearance Clear (Clear); Urine Color Yellow (Yellow); Urine Specific Gravity 1.006 (1.001-1.035); Urine Urobilinogen 0.2 eU/dL (<2.0); Urine pH 5.5 (4.5-8.0)
[2022-02-16 20:39] LABS: Barbiturates Screen,Urine Negative (Negative); Benzodiazepines Screen,Urine Negative (Negative); Cannabinoid Screen,Urine Negative (Negative); Opiate Screen,Urine Negative (Negative); Phencyclidine Screen,Urine Negative (Negative)
[2022-02-16] MEDS ORDERED: GLUCAGON 1 MG VIAL IM PRN ×2 (21:59→22:12)
[2022-02-16] MEDS ORDERED: DEXTROSE 50% 25 GM/50 ML VIAL IV PRN (21:59)
[2022-02-16] MEDS ORDERED: ALBUTEROL 2.5 MG/3 ML NEB RESP TX PRN (22:00)
[2022-02-16] MEDS ORDERED: SIMETHICONE CHEW 125 MG TABLET PO PRN (22:00)
[2022-02-16] MEDS ORDERED: ACETAMINOPHEN 325 MG TABLET PO PRN (22:00)
[2022-02-16] MEDS ORDERED: ONDANSETRON 4 MG/2 ML VIAL IV PRN (22:00)
[2022-02-16] MEDS ORDERED: guaiFENesin/DM ER 600-30 MG TABLET PO PRN (22:12)
[2022-02-16] MEDS ORDERED: hydrALAZINE 20 MG/1 ML VIAL IV PRN (22:12)
[2022-02-16] MEDS ORDERED: INSULIN GLARGINE 100 UNIT/ML SUBCUT SCH (22:24)
[2022-02-16] MEDS ORDERED: DEXTROSE 10% 250 ML BAG IV PRN (22:27)
[2022-02-16] MEDS ORDERED: ZALEPLON 5 MG CAPSULE PO STA (23:30)
[2022-02-16] MEDS: ENOXAPARIN 40 MG/0.4 ML SYRINGE SUBCUT SCH (23:55)
[2022-02-16] MEDS: SODIUM CHLORIDE 0.9% 1,000 ML IV SCH (23:55)
[2022-02-16] MEDS: INSULIN REGULAR 100 UNIT/ML SUBCUT SCH (23:55)
[2022-02-17] MEDS ORDERED: MELATONIN 3 MG TABLET PO ONE (01:32)
[2022-02-17] MEDS: INSULIN REGULAR 100 UNIT/ML SUBCUT SCH ×6 (04:24→23:35)
[2022-02-17] MEDS: SODIUM CHLORIDE 0.9% 1,000 ML IV SCH ×4 (04:24→21:00)
[2022-02-17 06:44] LABS: Basophils % 0.6 % (0.0-0.8); Eosinophils # 0.2 10*3/uL (0.0-0.87); Eosinophils % 2.9 % (0.00-10.9); Hematocrit 37.2 VOL% (42.0-52.0); Hemoglobin 12.5 GM/DL (14.0-18.0); Immature Granulocytes % 0.3 %; Immature Granulocytes Absolute 0.02 #; Lymphocytes # 2.1 10*3/uL (1.4-4.0); Lymphocytes % 32.9 % (21.2-54.2); Mean Corpuscular HGB Conc 33.6 GM/DL (32-36); Mean Corpuscular Volume 87.7 FL (87-102); Mean Platelet Volume 11.2 FL (9.6-12.0); Monocytes % 6.6 % (1.7-12.7); Neutrophils % 56.7 % (38.7-73.9); Platelet Count 235 T/CUMM (130-400); Red Blood Count 4.24 MC/CUMM (3.8-5.5); Red Cell Distribution Width 12.2 % (9.3-17.3); White Blood Count 6.2 T/CUMM (4-12)
[2022-02-17 07:03] LABS: Calcium 8.9 MG/DL (8.5-10.1); Potassium 3.1 MMOL/L (3.5-5.1); Risk Ratio 6.47; VLDL Cholesterol 91.6 MG/DL
[2022-02-17] MEDS ORDERED: POTASSIUM CHLORIDE 20 MEQ TABLET PO PRN (07:50)
[2022-02-17] MEDS ORDERED: POTASSIUM CHLORIDE 20 MEQ TABLET PO ONE (08:00)
[2022-02-17] MEDS: PANTOPRAZOLE 40 MG TABLET PO SCH (08:32)
[2022-02-17] MEDS: DOCUSATE SODIUM 100 MG CAPSULE PO SCH ×2 (08:32→20:58)
[2022-02-17] MEDS ORDERED: metFORMIN 500 MG TABLET PO SCH (17:00)
[2022-02-17] MEDS ORDERED: ZALEPLON 5 MG CAPSULE PO PRN (19:37)
[2022-02-17] MEDS: POLYETHYLENE GLYCOL POWDER 17 GM PACK PO SCH (20:59)
[2022-02-17] MEDS ORDERED: INSULIN GLARGINE 100 UNIT/ML SUBCUT SCH (21:00)
[2022-02-17] MEDS ORDERED: ROSUVASTATIN 20 MG TABLET PO SCH (21:00)
[2022-02-17] MEDS: ENOXAPARIN 40 MG/0.4 ML SYRINGE SUBCUT SCH (22:05)
[2022-02-18] MEDS: SODIUM CHLORIDE 0.9% 1,000 ML IV SCH (02:09)
[2022-02-18] MEDS: INSULIN REGULAR 100 UNIT/ML SUBCUT SCH ×3 (03:59→11:56)
[2022-02-18 08:18] LABS: Basophils # 0.1 10*3/uL (0.0-0.2); Basophils % 0.9 % (0.0-0.8); Eosinophils # 0.2 10*3/uL (0.0-0.87); Eosinophils % 4.1 % (0.00-10.9); Hematocrit 36.1 VOL% (42.0-52.0); Hemoglobin 12.5 GM/DL (14.0-18.0); Immature Granulocytes % 0.6 %; Immature Granulocytes Absolute 0.03 #; Lymphocytes # 1.7 10*3/uL (1.4-4.0); Mean Corpuscular HGB Conc 34.6 GM/DL (32-36); Mean Corpuscular Volume 86.4 FL (87-102); Mean Platelet Volume 10.3 FL (9.6-12.0); Neutrophils % 54.4 % (38.7-73.9); Platelet Count 222 T/CUMM (130-400); Red Blood Count 4.18 MC/CUMM (3.8-5.5); Red Cell Distribution Width 12.3 % (9.3-17.3); White Blood Count 5.4 T/CUMM (4-12)
[2022-02-18] MEDS: PANTOPRAZOLE 40 MG TABLET PO SCH (08:33)
[2022-02-18] MEDS: POLYETHYLENE GLYCOL POWDER 17 GM PACK PO SCH (08:33)
[2022-02-18] MEDS: DOCUSATE SODIUM 100 MG CAPSULE PO SCH (08:33)
[2022-02-18 08:36] LABS: Albumin 2.6 G/DL (3.4-5.0); Bilirubin,Total 0.4 MG/DL (0.20-1.00); Calcium 8.2 MG/DL (8.5-10.1); Osmolality,Calculated 279.5 MOS/KG (273-304); Potassium 3.6 MMOL/L (3.5-5.1); Total Protein 6.1 G/DL (6.4-8.2)
[2022-02-18 12:17] VITALS: BP 128/91
== END 2022-02-18 14:07 | disposition home or self-care (01) | DRG 638 ==
LOC: N.ED 18:16 → N.EDINP 21:59 → N.3E 02-17 02:59
PROVIDERS: ADMIT Family Medicine; ATTEND Family Medicine